=== PATIENT | female | born 1965 | race Two or more races ===

== ENCOUNTER → 2016-09-09 | Outpatient (CLI) | payer MEDICAID ==
--- NOTE | 2016-09-09 11:19 | MA ---
Screening Digital Mammogram With Tomosynthesis and iCAD Indication: Routine screening. Technique: Standard digital CC projections were obtained. Digital breast tomosynthesis was performed in the MLO projection with reconstruction at 1.0 mm slice thickness. Composite MLO views were recons tructed. This examination was processed by the iCAD computer-aided detection system. Comparison: August 2015, August 2014, July 2013 and June 2011 Breast density: Type B. Findings: CAD was reviewed. No suspicious microcalcifications, mass, or architectural distortion. Impression: Negative mammogram BI-RADS: 1 - Negative Recommendation: Routine screening is recommended in one year. [facility] will send a result letter to the patient. Negative mammography should not preclude additional workup of a clinically suspicious finding. The patient's information is entered into a reminder system with a target due date for her next mammo gram.
== END ==
LOC: FIMAGING 08:54
DX: Z12.31 Encounter for screening mammogram for malignant neoplasm of breast (principal)
CPT/HCPCS: G0202

== ENCOUNTER 2017-01-02 07:32 | Day surgery (SDC) | payer MEDICAID ==
[2017-01-02] MEDS ORDERED: LIDOCAINE 1% 2 ML INJ ONE (08:11)
[2017-01-02] MEDS ORDERED: MIDAZOLAM 2 MG/2 ML VIAL ONE (08:49)
[2017-01-02] MEDS ORDERED: fentaNYL 100 MCG/2 ML INJ ONE (08:50)
--- NOTE | 2017-01-02 10:27 | GPN ---
[f rep st] PROCEDURE NOTE PROCEDURE: Colonoscopy and biopsy. INDICATIONS: Personal history of appendiceal carcinoma status post resection approximately 13 years ago. She has had colonoscopies at 5 year intervals, which have not shown any previous polyps, just the cecal resection. PREOPERATIVE DIAGNOSIS: Rule out polyps. POSTOPERATIVE DIAGNOSES: 1. 3 mm transverse colon polyp removed in total by cold biopsy in piecemeal fashion. 2. Status post cecal resection with end-to-side anastomosis. INFORMED CONSENT: I had a detailed discussion with the patient regarding the procedure, alternatives, benefits, and risks with a associate professor of counseling. She signed a Syriac consent, which was witnessed. COMPLICATIONS: None immediate. MEDICATIONS USED: Versed 7 mg IV, fentanyl 100 mcg IV. DESCRIPTION OF PROCEDURE: The patient was placed in the left lateral decubitus position. After adequate sedation, a visual and digital anorectal examination was performed. The video colonoscope was inserted via the rectum and advanced under direct visualization into the george terminal ilium. The prep was very good. There was a 3 mm polyp in the transverse colon, removed in total by cold biopsy in piecemeal fashion. There was a cecal resection with an end-to-side anastomosis in the ascending colon. Otherwise, the exam was normal. Upon withdrawal of the instrument, careful attention was paid to mucosal detail. The endoscope was completely removed, confirming the above findings. The patient tolerated the procedure well and was transferred to the recovery room in satisfactory condition. IMPRESSION: 1. 3 mm transverse colon polyp removed in total by cold biopsy in piecemeal fashion. 2. End-to-side anastomosis in the ascending colon. RECOMMENDATIONS: 1. Follow up pathology of polyp. 2. Repeat colonoscopy in 5 years. 3. I have a call in to Dr. Caceres regarding her initial diagnosis. She does not give any family history of tumors. I do not know if there was any genetic testing done or if it was appropriate at that time. 4. Resume previous diet. 5. Follow up with primary care physician as scheduled. We will contact the patient with the pathology results, usually within 1 week. I always recommend that if they have not heard back from us in 2 weeks they contact our office for the pathology results. Thank you for allowing me to participate in the patient's healthcare. Do not hesitate to call me with any questions. /[id number]/MODL MTDD
== END 2017-01-02 10:08 | disposition home or self-care (01) ==
LOC: FSGY 07:32
PROVIDERS: ATTEND Internal Medicine Gastroenterology
PROC: 0DBL8ZX Excision of Transverse Colon, Via Natural or Artificial Opening Endoscopic, Diagnostic (ICD-10-PCS; principal; 2017-01-02 09:00)
DX: D12.3 Benign neoplasm of transverse colon (principal); Z85.038 Personal history of other malignant neoplasm of large intestine; Z90.49 Acquired absence of other specified parts of digestive tract; I10 Essential (primary) hypertension
CPT/HCPCS: J2250; J3010

== ENCOUNTER → 2017-07-04 | Outpatient (CLI) | payer MEDICAID | LOC: FIMAGING 07:08 | DX: K76.0 Fatty (change of) liver, not elsewhere classified (principal) ==

== ENCOUNTER → 2017-09-10 | Outpatient (CLI) | payer MEDICAID | LOC: FIMAGING 09:09 | DX: Z12.31 Encounter for screening mammogram for malignant neoplasm of breast (principal) ==

== ENCOUNTER → 2018-09-11 | Outpatient (CLI) | payer MEDICAID | LOC: FIMAGING 10:25 | DX: Z12.31 Encounter for screening mammogram for malignant neoplasm of breast (principal) ==